=== PATIENT | male | born 1960 | race Caucasian/White ===

== ENCOUNTER 2022-04-01 12:27 | Emergency (ER) | payer BC, OTHER ==
[2022-04-01] MEDS ORDERED: Propofol 200 MG/20 ML SDV IVPUSH ONE (13:15)
== END 2022-04-01 14:47 | disposition home or self-care (01) ==
LOC: JP.ED 12:27
DX: I48.3 Typical atrial flutter (principal)
CPT/HCPCS: 92960; 93005; 93010; 99284; 99284-25; J2704

== ENCOUNTER 2022-06-26 19:01 | Emergency (ER) | payer OTHER ==
[2022-06-26] MEDS ORDERED: Sodium Chloride 0.9% 10 ML Syringe FLUSH PRN (19:23)
[2022-06-26 20:10] LABS: ESTIMATED GFR 40 mL/min (>60); TROPONIN I HIGH SENSITIVITY 7.4 pg/mL (<=60.3)
[2022-06-26] MEDS ORDERED: Propofol 200 MG/20 ML SDV ONE (21:58)
== END 2022-06-26 22:24 | disposition home or self-care (01) ==
LOC: JP.ED 19:01
DX: I48.91 Unspecified atrial fibrillation (principal); I10 Essential (primary) hypertension; Z79.01 Long term (current) use of anticoagulants; Z79.899 Other long term (current) drug therapy; Z86.16 Personal history of COVID-19
CPT/HCPCS: 36415; 80053; 84443; 84484; 85025; 92960; 93005; 99285; J2704; J3490

== ENCOUNTER 2022-09-08 15:41 | Emergency (ER) | payer OTHER ==
[2022-09-08] MEDS ORDERED: Propofol 200 MG/20 ML SDV IVPUSH ONE (16:23)
== END 2022-09-08 17:43 | disposition home or self-care (01) ==
LOC: JP.ED 15:41
DX: I48.91 Unspecified atrial fibrillation (principal); I48.92 Unspecified atrial flutter; I10 Essential (primary) hypertension; Z86.73 Personal history of transient ischemic attack (TIA), and cerebral infarction without residual deficits; Z79.01 Long term (current) use of anticoagulants; Z79.899 Other long term (current) drug therapy
CPT/HCPCS: 36415; 80048; 84484; 85025; 93005; 99285

== ENCOUNTER 2023-05-29 16:43 | Emergency (ER) | payer OTHER ==
[2023-05-29] MEDS ORDERED: Aspirin 81 MG Tab.Chew PO ONE (17:12)
[2023-05-29] MEDS ORDERED: Sodium Chloride 0.9% 10 ML Syringe FLUSH PRN (17:12)
[2023-05-29 17:16] LABS: BASOPHILS ABSOLUTE AUTO 0.08 K/uL (0.00-0.10); BASOPHILS PERCENT AUTO 0.6 % (0.1-1.3); EOSINOPHILS ABSOLUTE AUTO 0.14 K/uL (0.00-0.40); HEMATOCRIT 43.4 % (38.4-49.7); HEMOGLOBIN 14.5 g/dL (12.9-16.9); IMMATURE GRAN ABSOLUTE AUTO 0.08 K/uL (0.00-0.23); IMMATURE GRAN PERCENT AUTO 0.6 % (0.0-0.7); LYMPHOCYTES ABSOLUTE AUTO 2.43 K/uL (0.8-3.3); LYMPHOCYTES PERCENT AUTO 17.3 % (11.4-47.7); MEAN CORPUSCULAR HEMOGLOBIN 27.9 pg (31.6-35.5); MEAN CORPUSCULAR HGB CONC 33.4 g/dL (31.6-35.5); MEAN CORPUSCULAR VOLUME 83.6 fL (81.4-99.0); MONOCYTES PERCENT AUTO 8.5 % (3.3-12.6); NEUTROPHILS ABSOLUTE AUTO 10.14 K/uL (1.0-7.6); PLATELET COUNT,PLT 363 K/uL (130-375); RED BLOOD CELL COUNT 5.19 M/uL (4.14-5.76); WHITE BLOOD CELL COUNT,WBC 14.1 K/uL (3.2-11.0)
[2023-05-29] MEDS ORDERED: Sodium Chloride 0.9% 1,000 ML IV ONE (17:22)
[2023-05-29 17:27] LABS: INR 1.2; PROTHROMBIN TIME 11.8 sec (9.2-10.6)
[2023-05-29 17:39] LABS: CALCIUM 9.5 mg/dL (8.5-10.1); CREATININE 2.4 mg/dL (0.8-1.3); EST CRCL DRUG DOSING (CG) 37.58 mL/min; POTASSIUM,K 4.7 mmol/L (3.6-5.2)
[2023-05-29 17:40] LABS: ANION GAP 13.7 mmol/L (5.0-14.0); MAGNESIUM 1.8 mg/dL (1.8-2.4); TSH ULTRASENSITIVE 2.45 uIU/mL (0.358-3.740)
[2023-05-29] MEDS ORDERED: Propofol 200 MG/20 ML SDV ONE (17:53)
== END 2023-05-29 19:10 | disposition home or self-care (01) ==
LOC: JP.ED 16:43
DX: I48.92 Unspecified atrial flutter (principal); N17.9 Acute kidney failure, unspecified; R73.03 Prediabetes; E86.0 Dehydration; I10 Essential (primary) hypertension; I48.91 Unspecified atrial fibrillation; Z79.01 Long term (current) use of anticoagulants; Z86.73 Personal history of transient ischemic attack (TIA), and cerebral infarction without residual deficits
CPT/HCPCS: 36415; 71045; 80048; 83735; 84443; 84484; 85025; 85379; 85610; 85730; 92960; 93005; 93010; 96360; 99284; 99285; J2704; J7030

== ENCOUNTER 2023-08-30 15:32 | Emergency (ER) | payer OTHER ==
[2023-08-30 18:07] LABS: BASOPHILS ABSOLUTE AUTO 0.07 K/uL (0.00-0.10); BASOPHILS PERCENT AUTO 0.7 % (0.1-1.3); EOSINOPHILS ABSOLUTE AUTO 0.28 K/uL (0.00-0.40); EOSINOPHILS PERCENT AUTO 2.8 % (0.0-5.4); HEMATOCRIT 39.9 % (38.4-49.7); HEMOGLOBIN 13.5 g/dL (12.9-16.9); IMMATURE GRAN ABSOLUTE AUTO 0.03 K/uL (0.00-0.23); IMMATURE GRAN PERCENT AUTO 0.3 % (0.0-0.7); LYMPHOCYTES ABSOLUTE AUTO 2.38 K/uL (0.8-3.3); LYMPHOCYTES PERCENT AUTO 23.4 % (11.4-47.7); MEAN CORPUSCULAR HEMOGLOBIN 28.8 pg (31.6-35.5); MEAN CORPUSCULAR HGB CONC 33.8 g/dL (31.6-35.5); MEAN CORPUSCULAR VOLUME 85.3 fL (81.4-99.0); MONOCYTES ABSOLUTE AUTO 1.03 K/uL (0.20-0.90); MONOCYTES PERCENT AUTO 10.1 % (3.3-12.6); NEUTROPHILS ABSOLUTE AUTO 6.38 K/uL (1.0-7.6); NEUTROPHILS PERCENT AUTO 62.7 % (40.0-78.1); PLATELET COUNT,PLT 317 K/uL (130-375); RED BLOOD CELL COUNT 4.68 M/uL (4.14-5.76); WHITE BLOOD CELL COUNT,WBC 10.2 K/uL (3.2-11.0)
[2023-08-30 18:31] LABS: CALCIUM 8.9 mg/dL (8.5-10.1); CREATININE 1.4 mg/dL (0.8-1.3); EST CRCL DRUG DOSING (CG) 64.42 mL/min; POTASSIUM,K 4.5 mmol/L (3.6-5.2); TROPONIN I HIGH SENSITIVITY 8.3 pg/mL (<=60.3)
[2023-08-30 18:37] LABS: ANION GAP 12.5 mmol/L (5.0-14.0)
== END 2023-08-30 18:50 | disposition home or self-care (01) ==
LOC: JP.ED 15:32
DX: I48.91 Unspecified atrial fibrillation (principal); Z86.16 Personal history of COVID-19; Z79.01 Long term (current) use of anticoagulants; Z79.899 Other long term (current) drug therapy
CPT/HCPCS: 36415; 80048; 83735; 84484; 85025; 93005; 93010; 99283; 99285